=== PATIENT | male | born 1945 | race Caucasian/White ===

== ENCOUNTER 2024-06-18 09:18 | Day surgery (SDC) | payer MEDICARE, OTHER ==
[~2024-06-18] VITALS: Ht 177.8 cm; Wt 77.8 kg
[2024-06-18] VITALS (13 sets, daily range): BP systolic 111–141; BP diastolic 52–64; PULSE 52–62; RESP 12–17; O2SAT 93–96
[2024-06-18] MEDS ORDERED: normal saline 1,000 ML IV SCH (10:00)
[2024-06-18] MEDS ORDERED: nitroGLYCERIN 0.4mg SUBLingual tab SL PRN (10:00)
[2024-06-18] MEDS ORDERED: LORazepam 0.5 MG tablet PO PRN (10:00)
[2024-06-18] MEDS ORDERED: diphenhydrAMINE 25mg capsule PO PRN (10:00)
[2024-06-18] MEDS ORDERED: midazolam 1 mg/ML 2ml injection ONE (10:31)
[2024-06-18] MEDS ORDERED: fentaNYL/PF 50MCG/1 ML 2ML syringe ONE (10:31)
[2024-06-18] MEDS ORDERED: iohexol 350MG/ML 100ml bottle IV ONE (10:31)
[2024-06-18] MEDS ORDERED: LIDOcaine 1% 30ml preserv. free vial ONE (10:31)
[2024-06-18] MEDS ORDERED: iohexol 350 MG/ML 50ML vial IV ONE (10:31)
[2024-06-18] MEDS ORDERED: MULT-1085 PO (10:35)
[2024-06-18] MEDS ORDERED: KRIL500C PO (10:35)
[2024-06-18] MEDS ORDERED: INDA2.5T5 PO (10:35)
[2024-06-18] MEDS ORDERED: CHOL400T PO (10:35)
[2024-06-18] MEDS ORDERED: EZET10TA48 PO (10:35)
[2024-06-18] MEDS ORDERED: ASCO100031 PO (10:35)
[2024-06-18] MEDS ORDERED: NIFE-72 PO (10:35)
[2024-06-18 10:45] LABS: BASOPHILS # (AUTO) 0.1 X10'3 (0-0.2); MEAN PLATELET VOLUME 8.3 FL (7.4-10.4)
[2024-06-18 10:47] LABS: EOSINOPHILS # (AUTO) 0.3 X10'3 (0-0.9); EOSINOPHILS % (AUTO) 4.7 % (0-6); HEMATOCRIT 43.2 % (42.0-52.0); HEMOGLOBIN 14.9 g/dl (14.0-17.9); LYMPHOCYTES # (AUTO) 1.2 X10'3 (1.1-4.8); LYMPHOCYTES % (AUTO) 21.9 % (21-51); MEAN CORPUSCULAR HEMOGLOBIN 30.9 PG (27.0-31.0); MEAN CORPUSCULAR HGB CONC 34.6 g/dL (33.0-36.5); MEAN CORPUSCULAR VOLUME 89.2 FL (78-98); MONOCYTES # (AUTO) 0.5 X10'3 (0-0.9); MONOCYTES % (AUTO) 8.7 % (2-12); NEUTROPHILS # (AUTO) 3.3 X10'3 (1.8-7.7); NEUTROPHILS % (AUTO) 62.4 % (42-75); PLATELET COUNT 239 X10'3 (140-440); RED BLOOD COUNT 4.84 X10'6 (4.70-6.10); RED CELL DISTRIBUTION WIDTH 13.1 % (11.5-14.5); WHITE BLOOD COUNT 5.4 X10'3 (4.5-11.0)
[2024-06-18 10:57] LABS: ALBUMIN 4.1 G/DL (3.4-5.0); ANION GAP 10 (8-16); BLOOD UREA NITROGEN 13 MG/DL (7-18); BUN/CREATININE RATIO 13.5 (10.0-20.0); CALCIUM 9.6 MG/DL (8.5-10.1); CHLORIDE 103 MMOL/L (99-107); CREATININE 0.96 MG/DL (0.60-1.10); GLUCOSE 129 MG/DL (70-104); POTASSIUM 3.3 MMOL/L (3.5-5.1); SODIUM 141 MMOL/L (135-145); TOTAL CARBON DIOXIDE 28.3 MMOL/L (24-32); eCRCL 65 ML/MIN; eGFR 76 ML/MIN
[2024-06-18 10:59] LABS: APTT 29 SECONDS (22-32); INR 1.1 INR; PROTHROMBIN TIME 11.1 SECONDS (9.0-12.0)
[2024-06-18 11:04] LABS: BASOPHILS % (AUTO) 2.1 % (0-1)
[2024-06-18] MEDS ORDERED: OXAZEpam 15mg capsule PO PRN (12:30)
[2024-06-18] MEDS ORDERED: proCHLORperazine 10 MG/2 ml inj IV PRN (12:30)
[2024-06-18] MEDS ORDERED: normal saline 1000ml 1,000 ML IV SCH (12:30)
[2024-06-18] MEDS ORDERED: ondansetron/PF 4mg/2ml inj IV PRN (12:30)
== END 2024-06-18 18:00 | disposition home or self-care (01) ==
LOC: SSTAY O 09:18
PROVIDERS: ATTEND Internal Medicine Cardiovascular Disease
DX: I25.10 Atherosclerotic heart disease of native coronary artery without angina pectoris (principal); N40.0 Benign prostatic hyperplasia without lower urinary tract symptoms; I10 Essential (primary) hypertension; E78.5 Hyperlipidemia, unspecified; Z79.01 Long term (current) use of anticoagulants; Z79.899 Other long term (current) drug therapy; Z88.0 Allergy status to penicillin; Z88.8 Allergy status to other drugs, medicaments and biological substances
CPT/HCPCS: 36415; 71046; 80048; 85025; 85610; 85730; 93005; 93458; 99152; A6258; C1760; J1644; J2003; J2250; J3010; J7030; Q9967; Z7610; 99153